=== PATIENT | male | born 1960 | race Caucasian/White ===

== ENCOUNTER 2017-05-26 10:06 | Emergency (ER) | payer OTHER ==
--- NOTE | 2017-05-26 12:20 | ED Physician Documentation ---
History of Present Illness - Stated complaint Stated Complaint: HEP C EXPOSURE - Chief complaint Chief Complaint: General - History obtained from History obtained from: Patient - History of Present Illness Timing: Yesterday - Additonal information Additional information: The patient is a 56-year-old old [place] [employer] who presents out of concern for exposure to hepatitis C. Yesterday he interacted with a citizen whose upper extremities have been scratched with blackberry thorns. He reports getting blood on his hands, and is concerned because the citizen stated she is hepatitis C positive. The patient immediately washed the blood from his hands, and he denies having any wounds. He has undergone hepatitis B vaccination series. Review of Systems Constitutional: denies: Fever Nose: denies: Congestion Respiratory: denies: Dyspnea GI: denies: Nausea, Vomiting Skin: denies: Rash PD PAST MEDICAL HISTORY - Past Medical History Past Medical History: Yes Respiratory: None Neuro: None Endocrine/Autoimmune: None - Past Surgical History Past Surgical History: Yes General: Appendectomy - Present Medications Home Medications: Ambulatory Orders Medication Instructions Recorded Confirmed No Known Home Medications [No 05/26/17 05/26/17 Known Home Medications] - Allergies Allergies/Adverse Reactions: Allergies Allergy/AdvReac Type Severity Reaction Status Date / Time No Known Drug Allergies Allergy Verified 05/26/17 10:16 - Social History Does the pt smoke?: No Smoking Status: Never smoker Does the pt drink ETOH?: Yes Does the pt have substance abuse?: No - Immunizations Immunizations are current?: No - POLST Patient has POLST: No PD ED PE NORMAL - Vitals Vital signs reviewed: Yes (Initially hypertensive.) - General General: Alert and oriented X 3, Well developed/nourished - HEENT HEENT: Atraumatic - Respiratory Respiratory: No respiratory distress - Derm Derm: No rash - Extremities Extremities: No tenderness to palpate, Other (Examination of his hands intact dermis, without open wounds.) - Neuro Neuro: Alert and oriented X 3, No motor deficit, Normal speech Results - Vitals Vitals: Oxygen O2 Source Room air PD MEDICAL DECISION MAKING - ED course Complexity details: considered differential, d/w patient ED course: The patient's presentation is significant for exposure to the blood of a person who is said to be positive for hepatitis C. His risk of garry the viral illness through his intact skin is extremely low. Because of his concern about the exposure, blood was drawn to test for his baseline of hepatitis and HIV. He is to follow up with primary physician or community health clinic for repeat testing. I discussed with him the extremely low likelihood of infection given his low risk exposure. There is no clinical indication for initiation of prophylactic treatment at this time. Departure - Departure Disposition: 01 Home, Self Care Clinical Impression: Exposure to hepatitis C Condition: Stable Instructions: ED Body Fluid Exp Not HC Worker Comments: Followup for results of the hepatitis screen. Schedule followup appointment with primary physician or at the [facility] for repeat blood draw. Discharge Date/Time: 05/26/17 12:30
[2017-05-26 12:31] VITALS: BP 140/90
== END 2017-05-26 12:30 | disposition home or self-care (01) ==
LOC: ED 10:06
DX: Z20.5 Contact with and (suspected) exposure to viral hepatitis (principal)
CPT/HCPCS: 1040M; 36415; 80074; 87389; 99282; 99283